=== PATIENT | male | born 1980 | race African-American/Black ===

== ENCOUNTER 2020-03-04 18:35 | Emergency (ER) | payer SELFPAY ==
[~2020-03-04] VITALS: Ht 180.3 cm; Wt 68.2 kg
[2020-03-04 19:11] LABS: BASO # 0.1 x10^3/uL (0.0-0.2); BASO % 1 % (0-3); EOS # 0.2 x10^3/uL (0.0-0.7); EOS % 2 % (0-3); HEMATOCRIT 45.2 % (39.0-53.0); HEMOGLOBIN 14.3 g/dL (13.0-17.5); LYMPH # 2.7 x10^3/uL (1.0-4.8); LYMPH % 26 % (24-48); MEAN CORPUSCULAR HEMOGLOBIN 24 pg (25-35); MEAN CORPUSCULAR HGB CONC 32 g/dL (31-37); MEAN CORPUSCULAR VOLUME 74 fL (79-100); MONO # 0.9 x10^3/uL (0.0-1.1); MONO % 9 % (0-9); NEUT # 6.4 x10^3/uL (1.8-7.7); NEUT % 62 % (31-73); PLATELET COUNT 151 x10^3/uL (140-400); RED BLOOD COUNT 6.08 x10^6/uL (4.30-5.70); RED CELL DISTRIBUTION WIDTH 13.7 % (11.5-14.5); WHITE BLOOD COUNT 10.3 x10^3/uL (4.0-11.0)
[2020-03-04] MEDS ORDERED: IV NORMAL SALINE 1000ML BAG 1,000 ML IV ONE (19:15)
[2020-03-04 19:23] LABS: ACETAMIN < 2.0 mcg/ml (10-30); ETHANOL < 10 mg/dL (0-10); SALIC 4.3 mg/dL (2.8-20.0)
[2020-03-04 19:26] LABS: ALBUMIN 3.8 g/dL (3.4-5.0); DIRECT BILIRUBIN 0.1 mg/dL (0.0-0.2); TOTAL BILIRUBIN 0.3 mg/dL (0.2-1.0)
[2020-03-04 19:30] VITALS: BP 136/72
[2020-03-04 21:04] LABS: MICROCYTOSIS SLIGHT; PLT ESTIMATE ADEQUATE (ADEQUATE)
[2020-03-04 21:05] LABS: HYPOCHROMIA SLIGHT
--- NOTE | 2020-03-05 06:07 | EKG ---
[facility] [address] [place] [address] Test Date: 2020-03-04 Test Time: 18:44:01 Pat Name: PREET TRIANA Department: Room: Gender: M Leverman: : 1980 Requested By: RAFAEL COSTA Order Number: [id number] Reading MD: Measurements Intervals [place] Rate: 102 P: 71 [place]: 156 QRS: -14 QRSD: 96 T: 43 QT: 352 QTc: 463 Interpretive Statements SINUS TACHYCARDIA LEFT ATRIAL ABNORMALITY LEFTWARD AXIS ABNORMAL ECG RI6.02 No previous ECG available for comparison
--- NOTE | 2020-03-17 18:19 | PHYS DOC ---
Past Medical History Past Medical History: Schizophrenia Past Surgical History: Other Additional Past Surgical Histo: NOT ABLE TO OBTAIN Smoking Status: Current Every Day Smoker Additional Information: 1 PPD Alcohol Use: Occasionally Social History Narrative: PCP AND ICE General Adult EDM: Chief Complaint: DRUG ABUSE HPI: HPI: The history was obtained from the patient and EMS. Patient is a 40-year-old male with PMH polysubstance abuse who presents with a chief complaint of paranoid thought process. Patient states that everyone is out to get him. He states he has not seen anyone tried to harm him. He does not feel that anyone is following him. He states that he did use PCP and marijuana earlier today. he denies any alcohol consumption today. He denies any suicidal or homicidal ideations. Denies any chest pain, shortness of breath. Denies syncope. His abdominal pain. Denies any auditory or visual hallucinations. Patient states that he immediately called EMS because he wanted to be evaluated and get a ride towards the side of town. No other complaints. Review of Systems: Review of Systems: Constitutional: Denies fever or chills. [] Eyes: Denies change in visual acuity. [] HENT: Denies nasal congestion or sore throat. [] Respiratory: Denies cough or shortness of breath. [] Cardiovascular: Denies chest pain or edema. [] GI: Denies abdominal pain, nausea, vomiting, bloody stools or diarrhea. [] : Denies dysuria. [] Musculoskeletal: Denies back pain or joint pain. [] Integument: Denies rash. [] Neurologic: Denies headache, focal weakness or sensory changes. [] Endocrine: Denies polyuria or polydipsia. [] Lymphatic: Denies swollen glands. [] Psychiatric: Positive for anxiety Heart Score: Risk Factors: Risk Factors: DM, Current or recent (<one month) smoker, HTN, HLP, family history of CAD, obesity. Risk Scores: Score 0 - 3: 2.5% MACE over next 6 weeks - Discharge Home Score 4 - 6: 20.3% MACE over next 6 weeks - Admit for Clinical Observation Score 7 - 10: 72.7% MACE over next 6 weeks - Early Invasive Strategies Current Medications: Current Medications Medications (Trade) Dose Ordered Sig/Irina Start Time Stop Time Status Last Admin Dose Admin Sodium Chloride 1,000 ml @ 1,000 mls/hr 1X ONCE 03/04/20 19:15 03/04/20 19:47 DC 03/04/20 19:07 1,000 MLS/HR Allergies: Allergies: Allergies Coded Allergies Type Severity Reaction Last Updated Verified No Known Drug Allergies 03/04/20 No Physical Exam: PE: Constitutional: Well developed, well nourished, no acute distress, non-toxic appearance. [] HENT: Normocephalic, atraumatic, bilateral external ears normal, oropharynx moist, no oral exudates, nose normal. [] Eyes: PERRLA, EOMI, conjunctiva normal, no discharge. [] Neck: Normal range of motion, no tenderness, supple, no stridor. [] Cardiovascular:Heart rate regular rhythm, no murmur [] Lungs & Thorax: Bilateral breath sounds clear to auscultation [] Abdomen: Bowel sounds normal, soft, no tenderness, no masses, no pulsatile masses. [] Skin: Warm, dry, no erythema, no rash. [] Back: No tenderness, no CVA tenderness. [] Extremities: No tenderness, no cyanosis, no clubbing, ROM intact, no edema. [] Neurologic: Alert with intact cognitive function. No aphasia, dysarthria, or neglect. GCS 15. Pupils 3 mm briskly reactive b/l. No APD present. Cranial nerves 2-12 grossly intact; no facial asymmetry present, tongue midline, shoulder shrugging strength intact. Strength 5/5 and symmetric throughout. Light touch sensation intact throughout. Cerebellar testing appropriate without evidence of dysdiadochokinesia. DTR's 2+ in all 4 extremities. Negative pronator drift bilaterally. Gait normal Psychologic: Affect normal, judgement normal, mood normal. [] Current Patient Data: Labs: Current Medications Medications (Trade) Dose Ordered Sig/Irina Route PRN Reason Start Time Stop Time Status Last Admin Dose Admin Sodium Chloride 1,000 ml @ 1,000 mls/hr 1X ONCE IV 03/04/20 19:15 03/04/20 19:47 DC 03/04/20 19:07 1,000 MLS/HR Vital Signs: Vital Signs Date Time Temp Pulse Resp B/P (MAP) Pulse Ox O2 Delivery O2 Flow Rate FiO2 03/04/20 19:30 88 16 136/72 (93) 99 Room Air 03/04/20 18:43 99.1 99.1 EKG: EKG: [] Radiology/Procedures: Radiology/Procedures: [] Course & Med Decision Making: Course & Med Decision Making Pertinent Labs and Imaging studies reviewed. (See chart for details) [] Patient is a 40-year-old male who presents with chief complaint of paranoid thought process. Initial vital signs unremarkable. He does admit to multiple substances ingested today. On my initial assessment the patient does appear to be alert and oriented. Although he does appear to have paranoid thought process likely related to his drug use. Basic labs were obtained and were grossly unremarkable. Prior to complete evaluation patient was requesting to leave the emergency department. He does have someone at bedside who can take him home and closely monitor him. Although I did explain to the patient that we cannot fully exclude life or limb threat without completing evaluation. He does appear to have capacity at this time. He does appear clinically sober not under the influence of any mind altering substances. He is alert and oriented x3. He does express understanding of his medical needs and potential consequences. At this time patient will be leaving AGAINST MEDICAL ADVICE. Encouraged to report back to the emergency department at any time should he want further care. Chay Disclaimer: Chay Disclaimer: This electronic medical record was generated, in whole or in part, using a voice recognition dictation system. Departure Departure Impression: Primary Impression: Drug abuse Disposition: AGAINST MEDICAL ADVICE Condition: STABLE Referrals: NO PCP (PCP) Justicifation of Admission Dx: Justifications for Admission: Justification of Admission Dx: N/A RAFAEL COSTA DO Mar 17, 2020 18:19
== END 2020-03-04 19:35 | disposition left against medical advice (07) ==
LOC: ER 18:35
DX: F19.10 Other psychoactive substance abuse, uncomplicated (principal); F20.9 Schizophrenia, unspecified; F17.200 Nicotine dependence, unspecified, uncomplicated
CPT/HCPCS: 36415; 80076; 80329; 85025; 93005; 96360; 99284; G0480; J7030

== ENCOUNTER 2020-05-12 01:04 | Emergency (ER) | payer SELFPAY ==
[~2020-05-12] VITALS: Ht 175.3 cm; Wt 81.8 kg
--- NOTE | 2020-05-12 01:42 | RAD ---
Study: CR PORTABLE CHEST 1V Indication: Left shoulder pain. Comparison: None. Findings: Unremarkable cardiomediastinal silhouette and central vasculature. Left suprahilar granuloma. No localized airspace opacity, pleural effusion or pneumothorax. Grossly intact osseous structures. Impression: No acute radiographic abnormality of the chest. Electronically signed by: THUAN LIGHT MD (05/12/2020 1:39 AM) [id number]
[2020-05-12 02:13] LABS: BASO # 0.1 x10^3/uL (0.0-0.2); BASO % 1 % (0-3); EOS # 0.1 x10^3/uL (0.0-0.7); EOS % 1 % (0-3); HEMOGLOBIN 12.7 g/dL (13.0-17.5); LYMPH # 2.4 x10^3/uL (1.0-4.8); LYMPH % 32 % (24-48); MEAN CORPUSCULAR HEMOGLOBIN 23 pg (25-35); MEAN CORPUSCULAR HGB CONC 32 g/dL (31-37); MEAN CORPUSCULAR VOLUME 71 fL (79-100); MONO # 0.5 x10^3/uL (0.0-1.1); MONO % 7 % (0-9); NEUT # 4.5 x10^3/uL (1.8-7.7); NEUT % 59 % (31-73); PLATELET COUNT 169 x10^3/uL (140-400); RED BLOOD COUNT 5.61 x10^6/uL (4.30-5.70); RED CELL DISTRIBUTION WIDTH 14.7 % (11.5-14.5); WHITE BLOOD COUNT 7.6 x10^3/uL (4.0-11.0)
[2020-05-12 02:20] LABS: CALCIUM 9.4 mg/dL (8.5-10.1); CREATININE 0.9 mg/dL (0.7-1.3); GFR 112.5; POTASSIUM 3.6 mmol/L (3.5-5.1)
[2020-05-12 02:25] LABS: ACETAMIN < 2 mcg/ml (10-30); ETHANOL < 10 mg/dL (0-10); SALIC < 2.8 mg/dL (2.8-20.0)
[2020-05-12 02:26] LABS: ALBUMIN 3.6 g/dL (3.4-5.0); ALBUMIN/GLOBULIN RATIO 0.9 (1.0-1.7); TOTAL BILIRUBIN 0.2 mg/dL (0.2-1.0); TOTAL PROTEIN 7.4 g/dL (6.4-8.2)
[2020-05-12 02:55] LABS: PLT ESTIMATE ADEQUATE (ADEQUATE)
[2020-05-12 02:56] LABS: HYPOCHROMIA SLIGHT; MICROCYTOSIS MOD
--- NOTE | 2020-05-12 04:18 | PHYS DOC ---
Past Medical History Past Medical History: Schizophrenia, Unknown (JORDAN GROVER DO) Past Medical History: Schizophrenia (DARRELL OAKLEY DO) Past Surgical History: Other Additional Past Surgical Histo: NOT ABLE TO OBTAIN (JORDAN GROVER DO) Smoking Status: Current Every Day Smoker Alcohol Use: Occasionally (JORDAN GROVER DO) Smoking Status: Current Every Day Smoker Alcohol Use: Occasionally Drug Use: Marijuana, Methamphetamine (DARRELL OAKLEY DO) General Adult EDM: Chief Complaint: MULTIPLE COMPLAINTS HPI: HPI: 40-year-old male who denies any past medical history presents to the ED brought in by EMS from a [employer] parking lot, c/o bugs crawling on his skin and multiple other disorganized complaints. Patient does admit to methamphetamine abuse earlier tonight and when asked why he is so sweaty states it was because he was running outside. Patient denies any suicidal or homicidal ideations. Is alert and oriented to month date and year. Patient primarily complains of left shoulder/chest and back pain reporting something is "crawling and pinching" him. Is adament he did not smoke cocaine/no cocaine abuse. Denies any trauma/falls or assaults. States he fell 1 week ago and was seen at [facility], had scalp courtney. Pt has [facility] and agrees for labs, ekg and cxr. EMR was reviewed and reported history of schizophrenia on March encounter after patient was smoking marijuana with very paranoid thought processing. Patient left AMA. (JORDAN GROVER DO) Review of Systems: Review of Systems: Constitutional: Denies fever or chills. [] Eyes: Denies change in visual acuity. [] HENT: Denies nasal congestion or sore throat. [] Respiratory: Denies cough or shortness of breath. [] Cardiovascular: Denies syncope or edema. [] GI: Denies abdominal pain, nausea, vomiting, bloody stools or diarrhea. [] : Denies dysuria. [] Musculoskeletal: Denies back pain or joint pain. [] Integument: Denies rash. [] Neurologic: Denies headache, focal weakness or sensory changes. [] Endocrine: Denies polyuria or polydipsia. [] Lymphatic: Denies swollen glands. [] Psychiatric: Denies SI, HI (JORDAN GROVER DO) Heart Score: Risk Factors: Risk Factors: DM, Current or recent (<one month) smoker, HTN, HLP, family history of CAD, obesity. Risk Scores: Score 0 - 3: 2.5% MACE over next 6 weeks - Discharge Home Score 4 - 6: 20.3% MACE over next 6 weeks - Admit for Clinical Observation Score 7 - 10: 72.7% MACE over next 6 weeks - Early Invasive Strategies (JORDAN DIEHL DO) Allergies: Allergies: Allergies Coded Allergies Type Severity Reaction Last Updated Verified No Known Drug Allergies 03/04/20 No ([facility]) Physical Exam: PE: Constitutional: Well developed, well nourished, no acute distress, non-toxic appearance, no signs of any new trauma HENT: Normocephalic, atraumatic, bilateral external ears normal, oropharynx moist, right parietal scalp with approximately 5-10 courtney Eyes: PERRLA-2mm bl, EOMI, conjunctiva normal, no discharge. [] Neck: Normal range of motion, no tenderness, supple, no stridor. [] Cardiovascular: Tachycardic, S1 and S2 present Lungs & Thorax: Speaking in full sentences, bilateral equal chest rise Abdomen: soft, no tenderness, Skin: Warm, dry, no erythema, no rash, facial diaphoresis Back: No midline tenderness, no CVA tenderness. [] Extremities: No tenderness, no cyanosis, no clubbing, ROM intact, no edema. [] Neurologic: Alert and oriented X 3, normal motor function, normal sensory function, no focal deficits noted. [] Psychologic: Affect normal, judgement normal, is paranoid, tangential thought processing, denies SI/HI (ABIGAILJORDAN DO) PE: Constitutional: Well developed, well nourished, no acute distress, non-toxic appearance HENT: Normocephalic, old courtney to scalp Eyes: Conjunctiva normal, no discharge Neck: Normal range of motion, no tenderness, supple Lungs & Thorax: No respiratory distress, equal chest rise and fall Skin: Warm, dry, no erythema, no rash Extremities: No tenderness, ROM intact, no edema Neurologic: Alert and oriented X 3, normal motor function, normal sensory function, no focal deficits noted Psychologic: Affect paronoid, anxious (DARRELL OAKLEY DO) Current Patient Data: Labs: Laboratory Tests Test 05/12/20 02:00 White Blood Count 7.6 x10^3/uL (4.0-11.0) Red Blood Count 5.61 x10^6/uL (4.30-5.70) Hemoglobin 12.7 g/dL (13.0-17.5) L Hematocrit 40.0 % (39.0-53.0) Mean Corpuscular Volume 71 fL (79-100) L Mean Corpuscular Hemoglobin 23 pg (25-35) L Mean Corpuscular Hemoglobin Concent 32 g/dL (31-37) Red Cell Distribution Width 14.7 % (11.5-14.5) H Platelet Count 169 x10^3/uL (140-400) Neutrophils (%) (Auto) 59 % (31-73) Lymphocytes (%) (Auto) 32 % (24-48) Monocytes (%) (Auto) 7 % (0-9) Eosinophils (%) (Auto) 1 % (0-3) Basophils (%) (Auto) 1 % (0-3) Neutrophils # (Auto) 4.5 x10^3/uL (1.8-7.7) Lymphocytes # (Auto) 2.4 x10^3/uL (1.0-4.8) Monocytes # (Auto) 0.5 x10^3/uL (0.0-1.1) Eosinophils # (Auto) 0.1 x10^3/uL (0.0-0.7) Basophils # (Auto) 0.1 x10^3/uL (0.0-0.2) Platelet Estimate Adequate (ADEQUATE) Hypochromasia Slight Microcytosis Mod Sodium Level 139 mmol/L (136-145) Potassium Level 3.6 mmol/L (3.5-5.1) Chloride Level 103 mmol/L (98-107) Carbon Dioxide Level 27 mmol/L (21-32) Anion Gap 9 (6-14) Blood Urea Nitrogen 17 mg/dL (8-26) Creatinine 0.9 mg/dL (0.7-1.3) Estimated GFR (Cockcroft-Gault) 112.5 BUN/Creatinine Ratio 19 (6-20) Glucose Level 101 mg/dL (70-99) H Calcium Level 9.4 mg/dL (8.5-10.1) Total Bilirubin 0.2 mg/dL (0.2-1.0) Aspartate Amino Transferase (AST) 21 U/L (15-37) Alanine Aminotransferase (ALT) 24 U/L (16-63) Alkaline Phosphatase 64 U/L (46-116) Troponin I Quantitative < 0.017 ng/mL (0.000-0.055) Total Protein 7.4 g/dL (6.4-8.2) Albumin 3.6 g/dL (3.4-5.0) Albumin/Globulin Ratio 0.9 (1.0-1.7) L Salicylates Level < 2.8 mg/dL (2.8-20.0) L Salicylate Last Dose Date Unk Salicylate Last Dose Time Unk Acetaminophen Level < 2 mcg/ml (10-30) L Acetaminophen Last Dose Date Unk Acetaminophen Last Dose Time Unk Ethyl Alcohol Level < 10 mg/dL (0-10) Laboratory Tests 05/12/20 02:00 Laboratory Tests 05/12/20 02:00 Vital Signs: Vital Signs Date Time Temp Pulse Resp B/P (MAP) Pulse Ox O2 Delivery O2 Flow Rate FiO2 05/12/20 01:05 98.2 123 22 136/72 (93) 97 Room Air 98.2 (JORDAN GROVER DO) EKG: EKG: Sinus tachycardia at 108 bpm, left axis deviation, QTC 457, no T wave inv ersions, no ST elevations or ST depressions, normal QRS (JORDAN GROVER DO) Radiology/Procedures: Radiology/Procedures: IMAGING REPORT Signed PATIENT: PREET TRIANA ACCOUNT: [id number] : 1980 LOCATION: ER AGE: 40 SEX: M EXAM STATUS: REG ER ORD. PHYSICIAN: JORDAN RGOVER DO REASON: left shoulder pain PROCEDURE: PORTABLE CHEST 1V Study: CR PORTABLE CHEST 1V Indication: Left shoulder pain. Comparison: None. Findings: Unremarkable cardiomediastinal silhouette and central vasculature. Left suprahilar granuloma. No localized airspace opacity, pleural effusion or pneumothorax. Grossly intact osseous structures. Impression: No acute radiographic abnormality of the chest. Electronically signed by: THUAN LIGHT MD (05/12/2020 1:39 AM) [id number] DICTATED and SIGNED BY: THUAN LIGHT MD DATE: 05/12/20 0139 (JORDAN GROVER DO) Radiology/Procedures: PROCEDURE: PORTABLE CHEST 1V Study: CR PORTABLE CHEST 1V Indication: Left shoulder pain. Comparison: None. Findings: Unremarkable cardiomediastinal silhouette and central vasculature. Left suprahilar granuloma. No localized airspace opacity, pleural effusion or pneumothorax. Grossly intact osseous structures. Impression: No acute radiographic abnormality of the chest. Electronically signed by: THUAN LIGHT MD (05/12/2020 1:39 AM) [id number] (DARRELL OAKLEY DO) Course & Med Decision Making: Course & Med Decision Making Pertinent Labs and Imaging studies reviewed. (See chart for details) Concern for schizophrenia slightly worsened with substance-induced mood disorder. Urinalysis not obtained. CK and sober reevaluation pending. Due to shift change patient was signed out to oncoming physician Dr. Oakley for reevaluation and disposition. (JORDAN GROVER DO) Course & Med Decision Making 0600- Signout received from Dr. Grover for patient with reports of probable drug abuse with PCP and/or Methamphetamines. Patient apparently was picked up by EMS for "acting out" reporting that "bugs are in me". Patient pending UDS. Labs reviewed. CXR stable. Patient seen and evaluated by me. Patient appears paranoid. Requesting help with drug abuse. PAT consult placed. Attempting to get patient placed for drug rehab and to restart his psychiatric medications. 1027- Patient started to become verbally aggressive and increasingly paranoid. Patient elected to leave against medical advice. Patient refusing to sign AMA form. (DARRELL OAKLEY DO) Dragon Disclaimer: Dragon Disclaimer: This electronic medical record was generated, in whole or in part, using a voice recognition dictation system. (JORDAN GROVER DO) Departure Departure Impression: Primary Impression: Schizophrenia Qualified Codes: F20.9 - Schizophrenia, unspecified Additional Impressions: Drug abuse Left against medical advice Disposition: 07 AMA/ELOPED/LWBS Condition: GUARDED Referrals: NO PCP (PCP) JORDAN GROVER DO May 12, 2020 04:18 DARRELL OAKLEY DO May 12, 2020 10:40
[2020-05-12] MEDS ORDERED: IV NORMAL SALINE 1000ML BAG 1,000 ML IV ONE (06:30)
[2020-05-12 09:30] VITALS: BP 142/82
== END 2020-05-12 10:27 | disposition left against medical advice (07) ==
LOC: ER 01:04
DX: F20.9 Schizophrenia, unspecified (principal); F15.10 Other stimulant abuse, uncomplicated; R07.89 Other chest pain; M54.9 Dorsalgia, unspecified; R00.0 Tachycardia, unspecified; M25.512 Pain in left shoulder; F17.200 Nicotine dependence, unspecified, uncomplicated
CPT/HCPCS: 36415; 71045; 80053; 80329; 82550; 84484; 85025; 96360; 99285; G0480; J7030

== ENCOUNTER 2021-01-22 15:31 | Emergency (ER) | payer SELFPAY | END 2021-01-22 18:09 | disposition left against medical advice (07) | LOC: ER 15:31 | DX: T14.90XA Injury, unspecified, initial encounter (principal); Z53.21 Procedure and treatment not carried out due to patient leaving prior to being seen by health care provider; Y08.89XA Assault by other specified means, initial encounter; Y93.89 Activity, other specified; Y92.89 Other specified places as the place of occurrence of the external cause; Y99.8 Other external cause status ==